=== PATIENT | male | born 1945 | race Caucasian/White ===

== ENCOUNTER → 2016-11-08 | Outpatient (CLI) | payer OTHER, MEDICARE | LOC: FIMAGING 09:04 | PROVIDERS: ATTEND Internal Medicine | DX: J40 Bronchitis, not specified as acute or chronic (principal) | CPT/HCPCS: 36415-PO; G0463-PO ==

== ENCOUNTER → 2017-01-11 | Outpatient (CLI) | payer OTHER, MEDICARE ==
[~2017-01-11] MED LIST: GADOBUTROL 10 ML VIAL IVP ONE
== END ==
LOC: FIMAGING 14:14
PROVIDERS: ATTEND Internal Medicine
DX: G93.89 Other specified disorders of brain (principal); H53.2 Diplopia; J32.0 Chronic maxillary sinusitis
CPT/HCPCS: 70553; A9585